=== PATIENT | female | born 1965 | race Caucasian/White ===

== ENCOUNTER 2020-10-25 13:32 | Emergency (ER) | payer OTHER ==
[~2020-10-25] VITALS: Ht 170.2 cm; Wt 115.7 kg
--- OUTSIDE RECORDS SUMMARY | 2020-10-25 15:00 | XMS ---
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 Scarlett has no Care Guidelines for this patient. [place]rest[place] VISIT COUNT (12 MO.) 1 [facility] 1 [facility] TOTAL 2 NOTE: Visits indicate total known visits. ED/C VISIT TRACKING (12 MO.) 10/25/2020 14:52 [facility] DIAGNOSES: - STEMI 10/25/2020 13:33 [facility] [place] TYPE: Emergency COMPLAINT: - CHEST PAIN, DIZZINESS, DIFFICULTY BREATHING INPATIENT VISIT TRACKING (12 MO.) No inpatient visits to display in this time frame [email or web address]
--- NOTE | 2020-10-27 12:34 | EKG ---
[facility] [address] [facility] [place], [place] [address] Signed Normal sinus rhythm ST elevation, consider inferior injury or acute infarct ACUTE ND / STEMI Abnormal ECG No previous ECGs available Confirmed by TARAN HERNÁNDEZ DO ([id number]) on 10/27/2020 12:34:32 PM Electronically Signed By: TARAN HERNÁNDEZ DO 10/27/20 1234 PATIENT NAME: BETANCOURTRONALD Electrocardiogram DATE OF : 63 PHYSICIAN: TARAN HERNÁNDEZ DO REPORT #: [id number] REPORT IS CONFIDENTIAL AND NOT TO BE RELEASED WITHOUT AUTHORIZATION
--- NOTE | 2020-10-27 12:35 | EKG ---
[facility] [address] [facility] [place] [address] Signed Age and gender specific ECG analysis Normal sinus rhythm ST elevation, consider inferior injury or acute infarct ACUTE ND / STEMI Abnormal ECG When compared with ECG of 25-OCT-2020 13:46, (Unconfirmed) No significant change was found Confirmed by TARAN HERNÁNDEZ DO ([id number]) on 10/27/2020 12:34:40 PM Electronically Signed By: TARAN HERNÁNDEZ DO 10/27/20 1235 PATIENT NAME: RONALD BETANCOURT Electrocardiogram DATE OF : 63 PHYSICIAN: TARAN HERNÁNDEZ DO REPORT #: [id number] REPORT IS CONFIDENTIAL AND NOT TO BE RELEASED WITHOUT AUTHORIZATION
== END 2020-10-25 14:36 | disposition short-term general hospital (02) ==
LOC: ED 13:32
DX: I21.19 ST elevation (STEMI) myocardial infarction involving other coronary artery of inferior wall (principal); Z20.822 Contact with and (suspected) exposure to COVID-19
CPT/HCPCS: 71045; 80053; 83735; 84484; 85025; 93005; 93010; 96374; 99285-25; J1644; U0003

== ENCOUNTER 2021-03-07 16:59 | Emergency (ER) | payer OTHER ==
[~2021-03-07] VITALS: Ht 170.2 cm; Wt 111.2 kg
--- NOTE | 2021-03-10 21:19 | EKG ---
[facility] [address] [facility] [place] [address] Signed Age and gender specific ECG analysis Normal sinus rhythm ST elevation, consider inferolateral injury or acute infarct Abnormal ECG When compared with ECG of 07-MAR-2021 17:06, (Unconfirmed) No significant change was found Confirmed by TARAN HERNÁNDEZ DO ([id number]) on 03/10/2021 9:19:18 PM Electronically Signed By: TARAN HERNÁNDEZ DO 03/10/21 2119 PATIENT NAME: RONALD BETANCOURT Electrocardiogram DATE OF : 63 PHYSICIAN: TARAN HERNÁNDEZ DO REPORT #: [id number] REPORT IS CONFIDENTIAL AND NOT TO BE RELEASED WITHOUT AUTHORIZATION
== END 2021-03-07 20:28 | disposition home or self-care (01) ==
LOC: ED 16:59
DX: R07.9 Chest pain, unspecified (principal); R94.31 Abnormal electrocardiogram [ECG] [EKG]
CPT/HCPCS: 71045; 80053; 83735; 84484; 85025; 85379; 85610; 93005; 93010; 96365; 96375; 99285-25; J2270; J3475

== ENCOUNTER 2022-03-09 08:00 | Day surgery (SDC) | payer OTHER ==
[~2022-03-09] VITALS: Ht 170.2 cm; Wt 93.2 kg
[~2022-03-09 08:00] MED LIST: ATORVASTATIN CA40 MG PO; CYMBALTA60 MG PO; FISH OIL 1,0001 EAC5 PO; IRON240 MG PO; METFORMIN HCL1000 MG PO; METOPROLOL SUCC50 MG PO; OSTERA TABLET1 EACH PO; OZEMPIC1 MG/0.71 SQ; VIT C-ROSE HIP500 MG PO; ZESTRIL40 MG PO
[2022-03-09] MEDS ORDERED: ZYRTEC10 MG PO (08:20)
[2022-03-09] MEDS ORDERED: GLUCOSAMINE HC500 MG PO (08:21)
--- NOTE | 2022-03-09 10:06 | NUR ---
03/09/22 1006 Sheets,Deysi 1000 PT ARRIVED TO PACU ON 6L VIA MASK, PT WAKES AND DENIES CONCERNS. PT REORIENTED TO PACU. VSS. 1003 O2 REMOVED AND PLAN OF CARE DISCUSSED. PT ENCOURAGED TO PASS GAS.
--- NOTE | 2022-03-10 07:42 | OR ---
[facility] [address] [place], [place] [address] Signed DATE OF OPERATION: 03/09/2022 SURGEON: Sourav Byers MD PREOPERATIVE DIAGNOSES: 1. Screening. 2. Long redundant colon. 3. Diverticulosis. 4. Internal and external hemorrhoids. 5. Chronic iron-deficiency anemia. 6. Postcholecystectomy diarrhea. POSTOPERATIVE DIAGNOSES: 1. Long redundant colon. 2. Minimal diverticulosis. 3. Minimal internal and external hemorrhoids. PROCEDURE: Colonoscopy without biopsy. ESTIMATED BLOOD LOSS: None. INDICATIONS: Ronald is a 56-year-old obese diabetic female, asked to see me for her followup colonoscopy. She had gone to see Dr. Cedeño in [place], [place] after her cholecystectomy. Her MRCP was negative. In 2011, a colonoscopy showed her long redundant colon with minimal diverticulosis and internal and external hemorrhoids. She required monitored anesthesia care. She said all the report came back negative. She was asked to follow up in 10 years for repeat colonoscopy. She has a long history of iron deficiency anemia and takes iron tablets. There is no family history of colon cancer or polyps. In the office, I gave her a pamphlet on colonoscopy. She understands the nature of that test along with the risks including, but not limited to gas bloating, crampy abdominal pain, bleeding, perforation requiring surgery, and missed diagnosis. We also reviewed the need for monitored anesthesia care. She had expressed understanding and wished to proceed. PROCEDURE IN DETAIL: Ronald was taken into our endoscopy suite and placed in the left lateral decubitus position. She was given monitored anesthesia care with propofol per our nurse Electronically Signed By: SOURAV BYERS MD 03/10/22 0742 PATIENT NAME: RONALD BETANCOURT OPERATIVE REPORT DATE OF : 63 REPORT #: [id number] PHYSICIAN: SOURAV BYERS MD PCP: EDU AMAYA DO REPORT IS CONFIDENTIAL AND NOT TO BE RELEASED WITHOUT AUTHORIZATION [facility] [address] [place], [place] [address] Signed piping design specialist. She required additional boluses of propofol throughout the procedure. A digital rectal exam had been performed and this was unremarkable. Very little in the way of external hemorrhoids. Good sphincter tone. The adult colonoscope was then introduced, advanced all around into the cecum under direct visualization of camera. She indeed has a long redundant colon. It took extra propofol and abdominal compression in order to advance the scope. She did have a few areas of liquid particulate stool matter. Most of that was irrigated and suctioned out. She might consider a little additional bowel prep in the future. We could easily see the appendiceal orifice and the ileocecal valve. We had slowly withdrawn the scope. We took pictures throughout for photodocumentation. We irrigated and suctioned out areas as we went. There were no polyps. Very little in the way of diverticulosis. The rectum was unremarkable. Upon retroflexion of scope, very minimal internal hemorrhoid tissue. After this, the gas was suctioned out. Colonoscope removed. Ronald tolerated the procedure quite well. RECOMMENDATIONS: Ronald can follow up in 10 years for repeat colonoscopy. She should probably consider some additional bowel prep given her long redundant colon and diabetes. She will always need monitored anesthesia care. MD JUAN CARLOS Chris/MODL /[id number] cc: MD Edu Chris DO Copies: SOURAV BYERS MD, ARIAN DO ~ Electronically Signed By: SOURAV BYERS MD 03/10/22 0742 PATIENT NAME: RONALD BETANCOURT OPERATIVE REPORT DATE OF : 63 REPORT #: [id number] PHYSICIAN: SOURAV BYERS MD PCP: EDU AMAYA DO REPORT IS CONFIDENTIAL AND NOT TO BE RELEASED WITHOUT AUTHORIZATION
== END 2022-03-09 10:45 | disposition home or self-care (01) ==
LOC: DS 08:00 → OPS 08:00 → DS 09:00 → OPS 09:00
PROVIDERS: ATTEND Colon & Rectal Surgery
PROC: 0DJD8ZZ Inspection of Lower Intestinal Tract, Via Natural or Artificial Opening Endoscopic (ICD-10-PCS; principal; 2022-03-09 08:45)
DX: Z12.11 Encounter for screening for malignant neoplasm of colon (principal); K57.30 Diverticulosis of large intestine without perforation or abscess without bleeding; K64.8 Other hemorrhoids; K64.4 Residual hemorrhoidal skin tags; Q43.8 Other specified congenital malformations of intestine; D50.9 Iron deficiency anemia, unspecified; E66.9 Obesity, unspecified; E11.9 Type 2 diabetes mellitus without complications; I10 Essential (primary) hypertension; J45.20 Mild intermittent asthma, uncomplicated; Z68.32 Body mass index [BMI] 32.0-32.9, adult
CPT/HCPCS: J2001; J2704; J7121